=== PATIENT | female | born 1940 ===

== ENCOUNTER 2025-06-26 04:33 | Outpatient (CLI) | payer MEDICARE, SELFPAY ==
--- NOTE | 2025-06-26 | DI.NM_ITS ---
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 TECHNIQUE: Injected Dose: 24 mCi Tc-99m MDP Delayed Images: 2-3 hours. COMPARISON: No exams were available for comparison FINDINGS: There is no abnormal radiopharmaceutical uptake in the skeleton to suggest osseous metastatic disease. There is a focus of increased uptake in the mid right neck which is consistent with cervical facet arthropathy. No other significant uptake in the spinal column. There is some uptake in both sternoclavicular joints which is most probably degenerative in this age group. There is some asymmetric radiopharmaceutical uptake seen in the left breast. This may be related to prior recent procedure, given the recent breast cancer history here. IMPRESSION: 1. Findings as above but no evidence of osseous metastatic disease. DATA REPOSITORY:
== END 2025-06-26 04:53 ==
PROVIDERS: Visit Provider Internal Medicine Hematology & Oncology
DX: C50.612 Malignant neoplasm of axillary tail of left female breast (principal); Z17.1 Estrogen receptor negative status [ER-]
CPT/HCPCS: 78306